=== PATIENT | female | born 1995 | race Caucasian/White ===

== ENCOUNTER 2017-04-11 12:40 | Emergency (ER) | payer OTHER ==
[~2017-04-11] VITALS: Wt 67.5 kg
[~2017-04-11 12:40] MED LIST: ACET500C5 PO; BENZ100C70 PO; IBUP400T22 PO; ONDA4TAB14 PO
[2017-04-11] MEDS ORDERED: ACETAMINOPHEN 500 MG TAB PO STA (13:58)
[2017-04-11] MEDS ORDERED: ACET500C5 PO (15:04)
--- NOTE | 2017-04-11 15:04 | RADRPT ---
PROCEDURE: CT Brain without. CLINICAL INDICATION: Headache. TECHNIQUE: A CT of the brain was performed on multidetector high-resolution CT scanner utilizing a xial sections from the skull base through the vertex without contrast. The scan was reviewed in sof t tissue brain and high frequency resolution bone algorithm windows. Images were reviewed on a high -resolution PACS workstation. One or more the following does reduction techniques were utilized: Aut omated exposure control, adjustment of the mA/ or kV according to patient's size, or use of iterativ e reconstruction technique. The exam CTDI = 32.21 mGy and the DLP = 451.49 mGy-cm. COMPARISON: None available. FINDINGS: The ventricles and sulci are age-appropriate. There is no intracranial hemorrhage, mass effect or mi dline shift. No abnormal intra-axial or extra-axial fluid collections are seen. The cooney/white lizette er differentiation is preserved. No acute skull abnormality is noted. The visualized paranasal sinus es demonstrate mild scattered mucosal thickening mainly in ethmoid air cells. The mastoid air cells are essentially clear. IMPRESSION: 1. No acute intracranial hemorrhage, transcortical infarction or mass effect. RPTAT: HFN .Binu Camacho MD, MD Date Time Electronically viewed and signed by .Binu Camacho MD, MD on 04/11/2017 15:04 .N/
--- NOTE | 2017-04-11 15:14 | ERD ---
ER Documentation Chief Complaint Date/Time DATE: 04/11/17 TIME: 15:04 Chief Complaint FELL HIT HEAD, HAS LAC HPI Patient is 21-year-old female with no past medical history presents emergency department for concerns of a headache and scalp laceration. Patient states 3 days ago she was "too drunk". She states she fell in the bathroom and hit her head on the cabinet. Patient states that she did "blackout". Patient's partner was at the time and is also present today. Patient denies any additional episodes of consciousness since 3 days ago. Patient states her pain is in the frontal aspect of head. Patient denies any sudden, 10/10 onset of her GAXIOLA. Patient reports persistent pain with temporarily alleviation with ibuprofen. Patient denies any nausea, vomiting, weakness, chest pain, shortness breath, neck pain, visual changes. Patient speaking in full sentences. Patient does have small laceration to the top of her head however she used alcohol yesterday to clean it and the lesion stopped bleeding. ROS All systems reviewed and are negative except as per history of present illness. Medications Home Meds Active Scripts Acetaminophen* (Tylophen*) 500 Mg Capsule, 1 CAP PO Q6H Y for PAIN AND OR ELEVATED TEMP, #20 CAP Prov:AKILAH TALAVERA PA-C 04/11/17 Ondansetron (Ondansetron Odt) 4 Mg Tab.rapdis, 4 MG PO Q6H Y for NAUSEA AND/OR VOMITING, #10 TAB Prov:ARTURO CARUSO-C 06/14/16 Ibuprofen* (Motrin*) 400 Mg Tab, 400 MG PO Q6, #30 TAB Prov:SHOOPALTARIANARTURO PA-C 06/14/16 Acetaminophen* (Tylophen*) 500 Mg Capsule, 1 CAP PO Q6H Y for PAIN AND OR ELEVATED TEMP, #20 CAP Prov:MANDYTARIANARTURO PA-C 06/14/16 Benzonatate* (Tessalon Perle*) 100 Mg Capsule, 100 MG PO Q8H Y for COUGH for 7 Days, CAP Prov:MANDYTAARTURO PEMBERTON PA-C 06/14/16 PMhx/Soc History of Surgery: No Anesthesia Reaction: No Hx Neurological Disorder: No Hx Respiratory Disorders: No Hx Cardiac Disorders: No Hx Psychiatric Problems: No Hx Miscellaneous Medical Probl: No Hx Alcohol Use: No Hx Substance Use: No Hx Tobacco Use: No Smoking Status: Never smoker Physical Exam Vitals Vital Signs Date Time Temp Pulse Resp B/P Pulse Ox O2 Delivery O2 Flow Rate FiO2 04/11/17 12:44 99.3 108 20 141/75 99 Physical Exam GENERAL: Well-developed, well-nourished female. Appears in no acute distress. Speaking in full sentences. HEAD: Normocephalic, atraumatic. No deformities or ecchymosis. +1 cm lac, healing laceration noted to anterior scalp. No active bleeding. EYE: Pupils equal, round, and reactive to light. EOMs intact. No conjunctival erythema. No eye discharge. No periorbital ecchymosis bilaterally. ENT: External ear without any masses or tenderness. Auditory canals clear bilaterally. TM visualized bilaterally, non-erythematous, non-bulging. No hemotypanium bilaterally. Nasal mucosa pink with no discharge. Oropharynx is pink without any tonsillar erythema or exudates. No uvula deviation. No kissing tonsils. Non tender to palpation of bilateral mastoid process, no ecchymosis noted. NECK: Supple. No meningismus. Normal ROM of the neck. No cervical spine tenderness noted. LUNG: Clear to auscultation bilaterally. No rhonchi, wheezing, rales or coarse breath sounds. HEART: Regular rate and rhythm. No murmurs, rubs or gallops. BACK: No midline tenderness. EXTREMITIES: Equal pulses bilaterally. No peripheral clubbing, cyanosis or edema. No unilateral leg swelling. NEUROLOGIC: Alert and oriented x3, cooperative. Mood and affect appropriate to situation. Cranial nerves II through XII are grossly intact. Normal speech. Motor exam: 5/5 strength in upper and lower extremities. Sensory exam: Sensation intact to light touch on all four extremities. Cerebellar function exam: No dysmetria on [id number]-sd-[id number] test. Steady gait. No pronator drift. SKIN: Normal color. Warm and dry. No rashes or lesions. Results 24 hrs Current Medications Medications (Trade) Dose Ordered Sig/Radhika Route PRN Reason Start Time Stop Time Status Last Admin Dose Admin Acetaminophen (Tylenol Tab) 1,000 mg ONCE STAT PO 04/11/17 13:58 04/11/17 13:59 DC 04/11/17 14:07 Procedures/MDM ED COURSE: The patient was stable throughout ED course. I kept the patient and/or family informed of laboratory and diagnostic imaging results throughout the ED course. DIAGNOSTIC IMAGING: Read by radiologist. Patient: LEIGH CRUZ : 1995 Age: 21 Sex: F MR #: [id number] DOS: 04/11/17 1358 Ordering MD: AKILAH TALAVERA PA-C Location: [facility] Room/Bed: PROCEDURE: CT Brain without. CLINICAL INDICATION: Headache. TECHNIQUE: A CT of the brain was performed on multidetector high-resolution CT scanner utilizing axial sections from the skull base through the vertex without contrast. The scan was reviewed in soft tissue brain and high frequency resolution bone algorithm windows. Images were reviewed on a high- resolution PACS workstation. One or more the following does reduction techniques were utilized: Automated exposure control, adjustment of the mA/ or kV according to patient's size, or use of iterative reconstruction technique. The exam CTDI = 32.21 mGy and the DLP = 451.49 mGy-cm. COMPARISON: None available. FINDINGS: The ventricles and sulci are age-appropriate. There is no intracranial hemorrhage, mass effect or midline shift. No abnormal intra-axial or extra- axial fluid collections are seen. The cooney/white matter differentiation is preserved. No acute skull abnormality is noted. The visualized paranasal sinuses demonstrate mild scattered mucosal thickening mainly in ethmoid air cells. The mastoid air cells are essentially clear. IMPRESSION: 1. No acute intracranial hemorrhage, transcortical infarction or mass effect. RPTAT: HFN .Binu Camacho MD, MD Date Time Electronically viewed and signed by .Binu Camacho MD, MD on 04/11/2017 15: 04 .N/ CC: AKILAH TALAVERA PA-C PROCEDURES: None. MEDICATIONS GIVEN: [None.] Patient tolerated medication well with no adverse reactions. Patient reported improvement in pain. MEDICAL DECISION MAKING: Patient is a 21-year-old female who presents for concerns of a headache and small scalp laceration after the patient hit her head 3 days ago while in the bathroom. Patient states she lost consciousness due to hitting her head as well as being intoxicated. Denies any nausea, vomiting, acute confusion, excessive sleepiness. Vital signs were reviewed. Patient was afebrile. Patient is not hypoxic. Full neurological exam was normal. CT brain was obtained and showed No acute intracranial hemorrhage, transcortical infarction or mass effect. Scalp laceration appears to be healing already at this time. No additional interventions were done. Patient for no signs of wound dehiscence or infection. Given these findings, the patient's presentation is most consistent with headache and scalp laceration. I have a much lower clinical concern for intracranial hemorrhage, meningitis, encephalitis, CO poisoning, temporal arteritis, benign intracranial hypertension, intracranial mass, glaucoma, preeclampsia, sinusitis. PRESCRIPTIONS: Tylenol DISCHARGE: At this time, patient is stable for discharge and outpatient management. Patient was given a copy of imaging studies obtained today. Strict head injury return precautions were discussed with the patient. I have encouraged the patient to hydrate well. I have instructed the patient to follow-up with his/ her primary care physician in 1-2 days. If symptoms persist, patient may need to see a specialist for further examinations and testing. I have instructed the patient to promptly return to the ER at any time for any new or worsening symptoms including increased increased pain, fever, nausea, vomiting, numbness, neck stiffness, visual changes, weakness or LOC. The patient and/or family expressed understanding of and agreement with this plan. All questions were answered. Home care instructions were provided. Disclaimer: Inadvertent spelling and grammatical errors are likely due to EHR/ dictation software use and do not reflect on the overall quality of patient care. Also, please note that the electronic time recorded on this note does not necessarily reflect the actual time of the patient encounter. Departure Diagnosis: Primary Impression: Headache Headache type: unspecified Headache chronicity pattern: acute headache Intractability: not intractable Qualified Code: R51 - Acute nonintractable headache, unspecified headache type Condition: Stable Patient Instructions: Self-Care for Headaches Referrals: COMMUNITY CLINICS YOU HAVE RECEIVED A MEDICAL SCREENING EXAM AND THE RESULTS INDICATE THAT YOU DO NOT HAVE A CONDITION THAT REQUIRES URGENT TREATMENT IN THE EMERGENCY DEPARTMENT. FURTHER EVALUATION AND TREATMENT OF YOUR CONDITION CAN WAIT UNTIL YOU ARE SEEN IN YOUR DOCTORS OFFICE WITHIN THE NEXT 1-2 DAYS. IT IS YOUR RESPONSIBILITY TO MAKE AN APPOINTMENT FOR FOLOW-UP CARE. IF YOU HAVE A PRIMARY DOCTOR --you should call your primary doctor and schedule an appointment IF YOU DO NOT HAVE A PRIMARY DOCTOR YOU CAN CALL OUR PHYSICIAN REFERRAL HOTLINE AT IF YOU CAN NOT AFFORD TO SEE A PHYSICIAN YOU CAN CHOSE FROM THE FOLLOWING [facility] [address] [facility] [address] [facility] [address] [facility] [address] [facility] [address] [facility] [facility] [address] [facility]. [facility] YOU HAVE RECEIVED A MEDICAL SCREENING EXAM AND THE RESULTS INDICATE THAT YOU DO NOT HAVE A CONDITION THAT REQUIRES URGENT TREATMENT IN THE EMERGENCY DEPARTMENT. FURTHER EVALUATION AND TREATMENT OF YOUR CONDITION CAN WAIT UNTIL YOU ARE SEEN IN YOUR DOCTORS OFFICE WITHIN THE NEXT 1-2 DAYS. IT IS YOUR RESPONSIBILITY TO MAKE AN APPOINTMENT FOR FOLOW-UP CARE. IF YOU HAVE A PRIMARY DOCTOR --you should call your primary doctor and schedule and appointment IF YOU DO NOT HAVE A PRIMARY DOCTOR YOU CAN CALL OUR PHYSICIAN REFERRAL HOTLINE AT . IF YOU CAN NOT AFFORD TO SEE A PHYSICIAN YOU CAN CHOSE FROM THE FOLLOWING [facility] INSTITUTIONS: [facility] [address] [place] [address] [facility] [address] [place] [address] [facility] [address] [place] [address] Additional Instructions: Call your primary care doctor TOMORROW for an appointment during the next 1-2 days.See the doctor sooner or return here if your condition worsens before your appointment time. AKILAH TALAVERA PA-C Apr 11, 2017 15:14
[2017-04-11 15:36] VITALS: BP 132/70; PULSE 91; RESP 20; TEMP 98.9
== END 2017-04-11 15:38 | disposition home or self-care (01) ==
LOC: FTE 12:40
DX: R51 Headache (principal)
CPT/HCPCS: 70450; Z7502; Z7610

== ENCOUNTER 2018-01-12 08:00 | Emergency (ER) | END 2018-01-12 09:09 | disposition home or self-care (01) ==